=== PATIENT | male | born 1955 | race Caucasian/White ===

== ENCOUNTER 2018-09-27 10:47 | Outpatient (CLI) | payer OTHER ==
--- NOTE | 2018-09-27 18:04 | RAD ---
THORACIC SPINE TWO VIEWS 09/27/18 AP and lateral views are provided. No fracture, disc space narrowing, or area of bony destruction was seen. Very minimal anterior osteophytes are seen at some levels. The lower thoracic levels which wer e in question seemed unremarkable. IMPRESSION: No significant findings. POS: HOME
== END 2018-09-27 10:48 | disposition home or self-care (01) ==
LOC: BURRAD 10:47
PROVIDERS: ATTEND Nurse Practitioner Family
DX: M54.6 Pain in thoracic spine (principal)
CPT/HCPCS: 72070